=== PATIENT | male | born 1950 | race Caucasian/White ===

== ENCOUNTER 2019-09-19 09:03 | Outpatient (CLI) | payer OTHER, SELFPAY ==
--- NOTE | 2019-09-19 09:12 | XR_ITS ---
WS: [id number] IVP, 09/19/2019 Clinical Data: GROSS HEMATURIA Comparison: None. Findings: There is a small linear calcification overlying the mid aspect of the left 12th rib which could repre sent an intrarenal calcification. The patient has had bilateral hip prostheses. There are prostate calcifications. After the intravenou s injection of the contrast material, there is prompt bilateral excretion from both kidneys. The pyel ocalyceal systems show irregularity and dilatation which can be seen with chronic pyelonephritis. The ureters are normal in size. No intrarenal masses or cysts are seen. No ureteral calculi are present. The prostate is enlarged and indents the bladder which has several surface irregularities. The post voiding film shows a modest retention of contrast. XR/XR IVP w KUB [id number] Impression: 1. Question of linear calcification in superior aspect of left kidney which cou ld represent an intrarenal calculus. 2. Irregularity and slight dilatation of the bilateral calyceal systems bilater ally which can indicate chronic pyelonephritis. 3. No intrarenal masses or cysts are seen. 4. No ureteral calculi are present. 5. Prostate enlargement with minimal irregularity of the bladder.
[2019-09-19] MEDS: iohexol 300 mg/mL 50 mL Btl IV ×2 (10:30→10:31)
== END 2019-09-19 09:04 | disposition home or self-care (01) ==
PROVIDERS: Family Provider Family Medicine; PCP Family Medicine; Visit Provider Nurse Practitioner Family
DX: N40.0 Benign prostatic hyperplasia without lower urinary tract symptoms (principal); R31.0 Gross hematuria
CPT/HCPCS: 74400; 87086

== ENCOUNTER 2025-06-09 11:51 | Outpatient (CLI) | payer OTHER, SELFPAY ==
--- NOTE | 2025-06-09 11:59 | XR_ITS ---
WS: [id number] LEFT hip, 5 view. LEFT hip radiographs in upright and supine positioning. COMPARISON: 12/13/2016 HISTORY: LEFT hip pain. Status post LEFT hip arthroplasty. Arthroplasty components normally seated in the acetabulum. There is surface irregularity involving the acetabular component that was not present on the prior studies. Lucency with mild endosteal scalloping along the acetabulum, deep to the acetabular component, has pr ogressed since the prior study. Suspicious for particle disease. Mild acetabular osteophyte ridging. There is no fracture. No loosening along the short stem extending into the femoral neck. No obvious migration of the acetabular component. Partially visualized RIGHT hip replacement. Healed fracture RIGHT superior pubic rami. XR/XR hip LT 4V wo/w pel [id number] IMPRESSION: 1. 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 2. New surface irregularity involving the acetabular prosthesis. 3. No fractures or migration.
== END 2025-06-09 11:52 | disposition home or self-care (01) ==
PROVIDERS: Family Provider Family Medicine; PCP Family Medicine; Visit Provider Family Medicine
DX: M25.752 Osteophyte, left hip (principal); Z98.890 Other specified postprocedural states
CPT/HCPCS: 73503

== ENCOUNTER → 2025-07-16 10:53 | Outpatient (BNVA) | payer OTHER, SELFPAY | PROVIDERS: Family Provider Family Medicine; PCP Family Medicine; Visit Provider Family Medicine | DX: Z96.649 Presence of unspecified artificial hip joint (principal); Z96.642 Presence of left artificial hip joint | CPT/HCPCS: 85007; 85027; 85651; 86140 ==

== ENCOUNTER 2025-09-15 08:16 | Outpatient (CLI) | payer OTHER, SELFPAY ==
--- NOTE | 2025-09-15 08:29 | XR_ITS ---
WS: [id number] LEFT HIP HISTORY: hip pain COMPARISON: 06/09/2025, 12/13/2016 LEFT hip: No acute fracture or dislocation. Interval change in appearance of the acetabular component of the LEFT hip. The acetabular component is rotated counterclockwise. Femoral head prosthesis is now in contact with the bare acetabulum. No fractures. XR/XR hip LT 2-3V wo/w pel* [id number] IMPRESSION: 1. No hip fracture. 2. Loosening with significant movement of the acetabular component LEFT hip ar throplasty. New changes since 06/09/2025. Recommend evaluation by orthopedics.
== END 2025-09-15 08:17 | disposition home or self-care (01) ==
PROVIDERS: Family Provider Family Medicine; PCP Family Medicine; Visit Provider Family Medicine
DX: M16.12 Unilateral primary osteoarthritis, left hip (principal)
CPT/HCPCS: 73502

== ENCOUNTER → 2025-09-16 10:35 | Outpatient (BNVA) | payer OTHER, SELFPAY | PROVIDERS: Family Provider Family Medicine; PCP Family Medicine; Visit Provider Family Medicine | DX: Z01.818 Encounter for other preprocedural examination (principal) | CPT/HCPCS: 80053; 84153; 85025 ==